=== PATIENT | male | born 1980 | race Caucasian/White ===

== ENCOUNTER 2019-01-17 15:21 | Inpatient (IN) | payer OTHER ==
[2019-01-17 19:22] VITALS: BMI 24.1
--- NOTE | 2019-01-17 20:16 | HP ---
CIWA Score Nausea/Vomitin-Mild Nausea/No Vomiting Muscle Tremors: 2 Anxiety: 1-Mildly Anxious Agitation: 3 Paroxysmal Sweats: 3 Orientation: 0-Oriented Tacttile Disturbances: 0-None Auditory Disturbances: 0-None Visual Disturbances: 0-None Headache: 2-Mild CIWA-Ar Total Score: 12 - Admission Criteria OASAS Guidelines: Admission for Medically Managed Detox: Requires at least one of the followin. CIWA greater than 12 2. Seizures within the past 24 hours 3. Delirium tremens within the past 24 hours 4. Hallucinations within the past 24 hours 5. Acute intervention needed for co occurring medical disorder 6. Acute intervention needed for co occurring psychiatric disorder 7. Severe withdrawal that cannot be handled at a lower level of care (continued vomiting, continued diarrhea, abnormal vital signs) requiring intravenous medication and/or fluids 8. Patient presents the following: CIWA greater than 12 Admission Criteria Met: Admission criteria met Admission ROS [facility] Chief Complaint: xanax, heroin detox 38 yo with no medical problems, no medications, last here in detox about 4 years ago. Is in a methadone program. Pt relapsed about 2 months ago after passed of cancer. Since then has been using heroin, benzo, alcohol, amphetamines , alcohol. Pt is self employed- computer sales. Lives in [place] with uncle. Heroin- 6-8 bags IV for 2 months, in methadone program- 80mg/day Alcohol- 6 pack 1-2 a day, no seizures, no DT's amphetamines- occ use 1/2 gram a day benzo- xanax/klonopin- $10-15/day DUR- no current meds Allergies/Adverse Reactions: Allergies Allergy/AdvReac Type Severity Reaction Status Date / Time Penicillins Allergy Unknown Verified 01/17/19 18:59 - Ebola screening Have you traveled outside of the country in the last 21 days: No Have you had contact with anyone from an Ebola affected area: No Patient History - Patient Medical History Hx Anemia: No Hx Asthma: No Hx Chronic Obstructive Pulmonary Disease (COPD): No Hx Cancer: No Hx Cardiac Disorders: No Hx Congestive Heart Failure: No Hx Hypertension: No Hx Hypercholesterolemia: No Hx Pacemaker: No HX Cerebrovascular Accident: No Hx Seizures: No (but h/o blackouts -several weeks ago) Hx Dementia: No Hx Diabetes: No Hx Gastrointestinal Disorders: No Hx Liver Disease: No Hx Genitourinary Disorders: No Hx Sexually Transmitted Disorders: No Hx Renal Disease (ESRD): No Hx Thyroid Disease: No Hx Human Immunodeficiency Virus (HIV): No Hx Hepatitis C: No Hx Depression: Yes (ptsd) Hx Suicide Attempt: No Hx Bipolar Disorder: Yes Hx Schizophrenia: No - Patient Surgical History Past Surgical History: Yes Other Surgical History: rt varicose vein surgery / h/o rt jaw fx - PPD History Documented Results: Negative w/o proof Date: 12/27/14 - Smoking Cessation Smoking history: Current every day smoker Have you smoked in the past 12 months: Yes Aproximately how many cigarettes per day: 20 Cigars Per Day: 0 Hx Chewing Tobacco Use: No Initiated information on smoking cessation: Yes 'Breaking Loose' booklet given: 01/17/19 - Substance & Tx. History Hx Alcohol Use: Yes Hx Substance Use: Yes Substance Use Type: Alcohol, Heroin, Opiates, Tranquilizers - Substances abused Alcohol Substance route: Oral Frequency: Daily Amount used: 2 6packs daily Age of first use: 14 Date of last use: 01/16/19 Alprazolam (Xanax) Substance route: Oral Frequency: Daily Amount used: $10.00 Age of first use: 25 Date of last use: 01/16/19 Heroin Substance route: Injection Frequency: Daily Amount used: $60.00 Age of first use: 25 Date of last use: 01/16/19 Benzodiazepine (Klonopin) Substance route: Oral Frequency: Daily Amount used: $10.00 Age of first use: 25 Date of last use: 01/16/19 Family Disease History - Family Disease History Family Disease History: Other: Grandparent (alzheimers) Admission Physical Exam [facility] - Vital Signs Vital Signs: Vital Signs - 24 hr 01/17/19 19:07 Temperature 99.2 F Pulse Rate 91 H Respiratory 20 Rate Blood Pressure 116/70 Breathalyzer - Breathalyzer Breathalyzer: 0 Urine Drug Screen - Test Device Lot number: [id number] Expiration date: 09/29/20 - Control Is test valid?: Yes - Results Drug screen NEGATIVE: No Urine drug screen results: MET-Methamphetamine, FEN-Fentanyl, MOP-Opiates, OXY- Oxycodone, MTD-Methadone Inpatient Rehab Admission - Rehab Decision to Admit Inpatient rehab admission?: No
[2019-01-17] MEDS ORDERED: MELATONIN 5 MG TABLETS PO PRN (20:46)
[2019-01-17] MEDS ORDERED: diazePAM 5 MG TABLET PO ONE (20:46)
[2019-01-17] MEDS ORDERED: MAGNESIUM HYDROX 2400MG/30ML ORAL SUSPENSION 30 ML CUP PO PRN (20:46)
[2019-01-17] MEDS ORDERED: MENTHOL/PHENOL 1 EACH UD MM PRN (20:46)
[2019-01-17] MEDS ORDERED: MAG HYDROX/AL HYDROX/SIMETH 30 ML UNIT-DOSE CUP PO PRN (20:46)
[2019-01-17] MEDS ORDERED: MAGNESIUM CITRATE 300 ML BOTTLE PO PRN (20:46)
[2019-01-17] MEDS ORDERED: ACETAMINOPHEN 325 MG TABLET (FP) PO PRN ×2 (20:46)
[2019-01-17] MEDS ORDERED: BISMUTH SUBSALICYLATE 524 MG/30 ML UD PO PRN (20:46)
[2019-01-17] MEDS ORDERED: IBUPROFEN 400 MG TABLET (FP) PO PRN (20:46)
[2019-01-17] MEDS ORDERED: hydrOXYzine PAMOATE 25 MG CAPSULE (FP) PO PRN (20:46)
[2019-01-17] MEDS ORDERED: METHOCARBAMOL 500 MG TABLET PO PRN (20:46)
[2019-01-17] MEDS: THIAMINE HCL 100 MG TABLET (FP) PO SCH (21:47)
[2019-01-17] MEDS: diazePAM 5 MG TABLET PO SCH (21:55)
[2019-01-18] MEDS: diazePAM 5 MG TABLET PO SCH ×3 (05:54→22:04)
[2019-01-18] MEDS: NICOTINE 21 MG/24 HOURS TOPICAL PATCH TD SCH (10:43)
[2019-01-18] MEDS: PRENATAL VITAMINS W/ FOLIC ACID TABLET (FP) PO SCH (10:43)
[2019-01-18] MEDS: diazePAM 5 MG TABLET PO PRN ×2 (10:43→16:56)
[2019-01-18] MEDS: METHADONE HCL 40 MG DISPERSABLE TABLET PO SCH (11:29)
[2019-01-18 11:45] LABS: HEMATOCRIT 37.2 % (35.4-49); HEMOGLOBIN 12.5 GM/dL (11.7-16.9); MCH 27.5 pg (25.7-33.7); MCHC 33.8 g/dl (32.0-35.9); MEAN CELL VOLUME 81.5 fl (80-96); MEAN PLT VOLUME 8.4 fl (7.5-11.1); PLATELET COUNT 173 K/MM3 (134-434); RBC 4.56 M/mm3 (4.00-5.60); RDW 15.9 % (11.9-15.9); WHITE BLOOD COUNT 5.1 K/mm3 (4.0-10.0)
[2019-01-18 11:59] LABS: ALBUMIN 3.2 g/dl (3.4-5.0); BILIRUBIN,TOTAL 0.3 mg/dL (0.2-1); BLOOD UREA NITROGEN 11.1 mg/dL (7-18); CALCIUM 8.5 mg/dL (8.5-10.1); CREATININE 0.8 mg/dL (0.55-1.3); POTASSIUM 3.6 mmol/L (3.5-5.1)
--- NOTE | 2019-01-18 16:53 | PN ---
[facility] CIWA - CIWA Score Nausea/Vomitin Muscle Tremors: None Anxiety: 3 Agitation: 1-Slight > Activity Paroxysmal Sweats: 3 Orientation: 0-Oriented Tacttile Disturbances: 0-None Auditory Disturbances: 2-Mild Harshness/Frighten Visual Disturbances: 2-Mild Sensitivity Headache: 0-None Present CIWA-Ar Total Score: 13 BHS Progress Note (SOAP) Subjective: Sweating, Anxious, Nausea, Poor Appetite. Objective: PATIENT A & O X 3, OBSERVED AMBULATING ON UNIT UNASSISTED. IN NO ACUTE DISTRESS. 01/18/19 16:52 Vital Signs Temperature 97.7 F 01/18/19 13:18 Pulse Rate 92 H 01/18/19 13:18 Respiratory Rate 20 01/18/19 13:18 Blood Pressure 101/66 01/18/19 13:18 O2 Sat by Pulse Oximetry (%) Laboratory Tests 01/18/19 01/18/19 01/18/19 07:30 07:30 07:30 WBC 5.1 RBC 4.56 Hgb 12.5 Hct 37.2 MCV 81.5 MCH 27.5 MCHC 33.8 RDW 15.9 D Plt Count 173 MPV 8.4 Sodium 143 Potassium 3.6 Chloride 108 H Carbon Dioxide 28 Anion Gap 6 L BUN 11.1 Creatinine 0.8 Est GFR (CKD-EPI)AfAm 132.27 Est GFR (CKD-EPI)NonAf 114.12 Random Glucose 98 Calcium 8.5 Total Bilirubin 0.3 AST 27 ALT 37 Alkaline Phosphatase 114 Total Protein 6.0 L Albumin 3.2 L RPR Titer Nonreactive LABS NOTED. Assessment: 01/18/19 16:53 WITHDRAWAL SYMPTOMS. Plan: CONTINUE DETOX. ENSURE PO FOR CALORIC SUPPLEMENTATION.
[2019-01-18] MEDS: THIAMINE HCL 100 MG TABLET (FP) PO SCH (22:04)
[2019-01-19] MEDS: diazePAM 5 MG TABLET PO PRN (05:52)
[2019-01-19] MEDS: METHADONE HCL 40 MG DISPERSABLE TABLET PO SCH (05:52)
[2019-01-19] MEDS: diazePAM 5 MG TABLET PO SCH ×2 (10:53→22:41)
[2019-01-19] MEDS: NICOTINE 21 MG/24 HOURS TOPICAL PATCH TD SCH (10:53)
[2019-01-19] MEDS: PRENATAL VITAMINS W/ FOLIC ACID TABLET (FP) PO SCH (10:53)
--- NOTE | 2019-01-19 16:52 | PN ---
S CIWA - CIWA Score Nausea/Vomitin-No Nausea/No Vomiting Muscle Tremors: None Anxiety: 3 Agitation: 0-Normal Activity Paroxysmal Sweats: 3 Orientation: 0-Oriented Tacttile Disturbances: 2-Mild Itch/Numbness/Burn Auditory Disturbances: 0-None Visual Disturbances: 1-Very Mild Sensitivity Headache: 0-None Present CIWA-Ar Total Score: 9 BHS Progress Note (SOAP) Subjective: Sweating, Anxious, Fatigue. Objective: PATIENT A & O X 3, OBSERVED AMBULATING ON UNIT UNASSISTED. IN NO ACUTE DISTRESS. 01/19/19 16:52 Vital Signs Temperature 98.4 F 01/19/19 06:21 Pulse Rate 69 01/19/19 06:21 Respiratory Rate 18 01/19/19 06:30 Blood Pressure 99/67 01/19/19 06:21 O2 Sat by Pulse Oximetry (%) Laboratory Tests 01/18/19 01/18/19 01/18/19 07:30 07:30 07:30 WBC 5.1 RBC 4.56 Hgb 12.5 Hct 37.2 MCV 81.5 MCH 27.5 MCHC 33.8 RDW 15.9 D Plt Count 173 MPV 8.4 Sodium 143 Potassium 3.6 Chloride 108 H Carbon Dioxide 28 Anion Gap 6 L BUN 11.1 Creatinine 0.8 Est GFR (CKD-EPI)AfAm 132.27 Est GFR (CKD-EPI)NonAf 114.12 Random Glucose 98 Calcium 8.5 Total Bilirubin 0.3 AST 27 ALT 37 Alkaline Phosphatase 114 Total Protein 6.0 L Albumin 3.2 L RPR Titer Nonreactive LABS NOTED. Assessment: 01/19/19 16:53 WITHDRAWAL SYMPTOMS. Plan: CONTINUE DETOX. INCREASE DAILY PO FLUID / WATER INTAKE. PATIENT SCHEDULED FOR D/C TOMORROW.
[2019-01-19] MEDS: THIAMINE HCL 100 MG TABLET (FP) PO SCH (22:41)
[2019-01-20] MEDS ORDERED: diazePAM 5 MG TABLET PO SCH (06:00)
[2019-01-20] MEDS: METHADONE HCL 40 MG DISPERSABLE TABLET PO SCH (06:09)
[2019-01-20 07:46] VITALS: BP 100/67; PULSE 75; TEMP 98.5
[2019-01-20] MEDS: PRENATAL VITAMINS W/ FOLIC ACID TABLET (FP) PO SCH (11:03)
[2019-01-20] MEDS: NICOTINE 21 MG/24 HOURS TOPICAL PATCH TD SCH (11:04)
--- NOTE | 2019-01-20 14:43 | DS ---
[facility] Detox Discharge Summary Admission Date: 01/17/19 Discharge Date: 01/20/19 - History Present History: Alcohol Dependence, Opioid Dependence, Sedative Dependence, MMTP Additional Comments: PATIENT RETURNING TO [facility] ([place], [place]), WHERE HE HAS PREVIOUSLY BEEN A CLIENT, FOR AFTERCARE. PATIENT ALSO ADVISED TO CONSIDER LOCAL 12-STEP / NA / [facility] OUTPATIENT SUPPORT [facility] FOR AFTERCARE. PATIENT VERBALIZED UNDERSTANDING OF RECOMMENDATION. PATIENT WAS DISCHARGED FORM DETOX UNIT IN STABLE MEDICAL CONDITION. Pertinent Past History: History Of Blackout, Depression, P.T.S.D., Bipolar Disorder, M.M.T.P. - Physical Exam Results Vital Signs: Vital Signs Temperature 98.5 F 01/20/19 07:45 Pulse Rate 75 01/20/19 07:45 Respiratory Rate 16 01/20/19 07:45 Blood Pressure 100/67 01/20/19 07:45 O2 Sat by Pulse Oximetry (%) Pertinent Admission Physical Exam Findings: WITHDRAWAL SYMPTOMS. Laboratory Tests 01/18/19 01/18/19 01/18/19 07:30 07:30 07:30 WBC 5.1 RBC 4.56 Hgb 12.5 Hct 37.2 MCV 81.5 MCH 27.5 MCHC 33.8 RDW 15.9 D Plt Count 173 MPV 8.4 Sodium 143 Potassium 3.6 Chloride 108 H Carbon Dioxide 28 Anion Gap 6 L BUN 11.1 Creatinine 0.8 Est GFR (CKD-EPI)AfAm 132.27 Est GFR (CKD-EPI)NonAf 114.12 Random Glucose 98 Calcium 8.5 Total Bilirubin 0.3 AST 27 ALT 37 Alkaline Phosphatase 114 Total Protein 6.0 L Albumin 3.2 L RPR Titer Nonreactive LABS NOTED. - Treatment Hospital Course: Detox Protocol Followed, Detoxed Safely, Responded well, Discharged Condition Good Patient has Accepted a Rehab Referral to: PT. WILL RETURN TO PREVIOUS [facility] ([place], [place] - Diagnosis (1) ANA (blackout) Status: Chronic (2) Cocaine abuse Status: Chronic (3) Methadone maintenance therapy patient Status: Chronic (4) Nicotine dependence Status: Chronic Qualifiers: Nicotine product type: cigarettes Substance use status: uncomplicated Qualified Code(s): F17.210 - Nicotine dependence, cigarettes, uncomplicated (5) Alcohol dependence with uncomplicated withdrawal Status: Acute (6) Sedative, hypnotic or anxiolytic dependence with withdrawal, uncomplicated Status: Acute (7) Uncomplicated opioid dependence Status: Acute - AMA Did Patient Leave Against Medical Advice: No
== END 2019-01-20 11:42 | disposition home or self-care (01) | DRG 773 ==
LOC: YASAS 15:21 → Y3N 20:57
PROVIDERS: ADMIT Surgery; ATTEND Surgery
PROC: HZ2ZZZZ Detoxification Services for Substance Abuse Treatment (ICD-10-PCS; principal; 2019-01-17)
DX: F10.230 Alcohol dependence with withdrawal, uncomplicated (principal); F13.230 Sedative, hypnotic or anxiolytic dependence with withdrawal, uncomplicated; F11.20 Opioid dependence, uncomplicated; F14.10 Cocaine abuse, uncomplicated; F15.10 Other stimulant abuse, uncomplicated; F17.210 Nicotine dependence, cigarettes, uncomplicated; F31.9 Bipolar disorder, unspecified; F43.10 Post-traumatic stress disorder, unspecified; R55 Syncope and collapse
CPT/HCPCS: 36415; 80053; 85027; 86593